=== PATIENT | female | born 1940 | race Caucasian/White ===

== ENCOUNTER → 2019-06-10 09:06 | Outpatient (CLI) | payer MEDICARE, SELFPAY ==
--- NOTE | 2019-06-10 | DI.NM.S_ITS ---
PROCEDURE: NM BONE SCAN WHOLE BODY RADIOPHARMACEUTICAL: 23 mCi Tc-99m MDP IV. INDICATIONS: Abnormal findings on diagnostic imaging TECHNIQUE: Delayed whole-body scintigrams were obtained approximately 3-4 hours after intravenous injection of radiotracer. Anterior and posterior views were acquired from vertex to feet. Additional left and right oblique views of the thoracolumbar spine and pelvis were obtained. COMPARISON: Outside Facility, RG, MRI L-SPINE W/O CONTRAST, 05/15/2019, 9:26. FINDINGS: Symmetric appearing mildly increased uptake in bilateral acromial clavicular joint, glenohumeral joint, elbow joint, wrist joints, hip, and knee, ankle and hindfoot joints are seen most consistent with osteoarthritic changes. There is fairly symmetric increased uptake involving bilateral medial iliac bone adjacent to sacroiliac joint with mildly increased uptake in bilateral sacrum slightly more prominent on the left side most likely represent arthritic changes and/or facet arthropathy in this area. No definite focal increased uptake in posterior aspect of S1 is seen at MRI finding of geographic T1 and T2 hypointense signal area. IMPRESSION: 1. No definite focal increased radioisotope uptake is seen in posterior aspect of S1 at MR finding of geographic area of T1 and T2 hypointense signal. Given MR finding, metastatic bone lesion cannot be entirely excluded particularly if this represents lesion related to multiple myeloma. Continue CT or MRI surveillance is recommended. 2. No abnormal uptake is seen in L1 or L4 vertebral bodies to account for MR finding. 3. 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 Suggestion of osteoarthritic changes involving bilateral sacroiliac joints and involving the left-sided facet at L5-S1 level. Dictated by: Elpidio Palma M.D. on 06/12/2019 at 16:38 Approved by: Elpidio Palma M.D. on 06/12/2019 at 16:53
== END ==
PROVIDERS: PCP Physician Assistant; Visit Provider Physician Assistant
DX: R93.7 Abnormal findings on diagnostic imaging of other parts of musculoskeletal system (principal)
CPT/HCPCS: 78306; A9503

== ENCOUNTER → 2021-03-08 10:25 | Outpatient (CLI) | payer MEDICARE, SELFPAY ==
--- NOTE | 2021-03-08 | DI.US.S_ITS ---
PROCEDURE: US SOFT TISSUE HEAD AND NECK INDICATIONS: LOCALIZED ENLARGED LYMPHNODES TECHNIQUE: Real-time scanning was performed of the neck region of interest, with image documentation. COMPARISON: None. FINDINGS: Bilateral heterogeneous echotexture of the submandibular glands with prominent dense. Right duct: 3.3 mm Left duct: 2.7 mm No evidence of cervical lymphadenopathy. Incidentally, moderate bilateral carotid plaque is seen. A suspicious left thyroid nodule is seen, measuring up to 1 cm. IMPRESSION: 1. Heterogeneity of the bilateral submandibular glands with enlarged ducts, which may reflect an infectious or inflammatory process. 2. Suspicious left thyroid nodule. Consider correlation with thyroid function tests and dedicated ultrasound as warranted. Dictated by: Wayne Brito M.D. on 03/08/2021 at 13:22 Approved by: Wayne Brito M.D. on 03/08/2021 at 13:26
== END ==
PROVIDERS: PCP Physician Assistant; Referring Provider Physician Assistant; Visit Provider Physician Assistant
DX: R59.0 Localized enlarged lymph nodes (principal); E04.1 Nontoxic single thyroid nodule
CPT/HCPCS: 76536

== ENCOUNTER → 2021-03-15 11:04 | Outpatient (CLI) | payer MEDICARE, SELFPAY ==
--- NOTE | 2021-03-15 11:06 | DI.US.S_ITS ---
PROCEDURE: US THYROID INDICATIONS: NONTOXIC SINGLE THYROID NODULE TECHNIQUE: Real-time scanning was performed of the thyroid gland, with image documentation. COMPARISON: None. FINDINGS: Right: Thyroid lobe measures 4.6 x 1.4 x 1.4 cm, and is homogeneous in echotexture. Left: Thyroid lobe measures 5.8 x 1.2 x 1.0 cm, and is homogenous in echotexture. Isthmus: 2 Nodule number: 1 Location: Left mid lobe Size: 1.3 x 0.9 x 0.6 cm, previously 1.0 x 0.9 x 0.7 cm. Composition: Predominately cystic Echogenicity: Hypoechoic/anechoic Shape: wider than tall. Margins: Smooth Echogenic foci: Punctate Total points: 5 ACR TI-RADS category: Moderately suspicious IMPRESSION: Left thyroid nodule. Recommend follow-up with ultrasound in 1 year per consensus guidelines below. ACR TI-RADS definitions and recommendations: TI-RADS 1 (benign): 0 points. FNA not needed. TI-RADS 2 (not suspicious): 2 points. FNA not needed. TI-RADS 3 (mildly suspicious): 3 points. * FNA if 2.5 cm or larger, follow up if 1.5 cm or larger (at 1, 3, and 5 years). TI-RADS 4 (moderately suspicious): 4-6 points. * FNA if 1.5 cm or larger, follow up if 1 cm or larger (at 1, 2, 3, and 5 years). TI-RADS 5 (highly suspicious): 7 points or more. * FNA if 1 cm or larger, follow up if 0.5 cm or larger (every year for 5 years). Dictated by: Ryan Worthington M.D. on 03/15/2021 at 16:24 Approved by: Ryan Worthington M.D. on 03/15/2021 at 16:27
== END ==
PROVIDERS: PCP Physician Assistant; Referring Provider Physician Assistant; Visit Provider Physician Assistant
DX: E04.1 Nontoxic single thyroid nodule (principal)
CPT/HCPCS: 76536